=== PATIENT | female | born 1990 | race African-American/Black ===

== ENCOUNTER 2017-11-09 14:41 | Emergency (ER) | payer OTHER ==
[2017-11-09] MEDS: NAPROXEN 250 MG TAB PO (17:06)
[2017-11-09] MEDS: ALBUTEROL SULFATE 2.5 MG/0.5 ML INH NEB SOLN NEB (17:19)
== END 2017-11-09 17:49 | disposition home or self-care (01) ==
LOC: M ED 14:41
DX: M94.0 Chondrocostal junction syndrome [Tietze] (principal); R05 Cough
CPT/HCPCS: 71046